=== PATIENT | female | born 1940 | race Caucasian/White ===

== ENCOUNTER 2022-02-10 10:57 | Emergency (ER) | payer OTHER ==
[~2022-02-10] VITALS: Ht 154.9 cm; Wt 76.2 kg
[2022-02-10] MEDS ORDERED: LASIX40 MG PO (11:56)
[2022-02-10] MEDS ORDERED: LIPITOR40 MG PO (11:56)
[2022-02-10] MEDS ORDERED: COZAAR50 M1 PO (11:57)
[2022-02-10] MEDS ORDERED: LEVOTHYROXINE50 MCG PO (11:57)
[2022-02-10] MEDS ORDERED: METOPROLOL25 MG PO (11:58)
[2022-02-10] MEDS ORDERED: POTASSIUM CHLO20 ME3 PO (11:59)
[2022-02-10 12:00] LABS: BASO % 0.3 % (0.0-1.0); EOS # 0.1 10*3/uL (0.0-0.4); EOS % 1.2 % (1.0-4.0); LYMPH # 1.4 10*3/uL (1.3-4.4); LYMPH % 23.5 % (27.0-41.0); MEAN CELL VOLUME 87.6 fl (81.0-99.0); MEAN CORPUSCULAR HGB 28.4 pg (27.0-31.0); MEAN CORPUSCULAR HGB CONC 32.4 g/dl (33.0-37.0); MEAN PLATELET VOLUME 11.6 fl (9.6-12.3); MONO # 0.5 10*3/uL (0.1-1.0); MONO % 7.8 % (3.0-9.0); NEUT # 4.1 10*3/uL (2.3-7.9); PLATELET COUNT AUTOMATED 147 10*3/uL (130-400); RED BLOOD COUNT 4.68 10*6/uL (4.10-5.10); RED CELL DISTRI WIDTH 13.7 % (0-14.5)
[2022-02-10] MEDS ORDERED: PRESERVISION A1 EAC3 PO (12:00)
[2022-02-10] MEDS ORDERED: STIOLTO RESPIMAT4 GM INH (12:01)
[2022-02-10 12:12] LABS: INTERNATIONAL NORM RATIO 1.1 (2.0-3.5)
[2022-02-10 12:19] LABS: ALKALINE PHOSPHATASE 93 U/L (45-117); BUN 23 mg/dl (7-24); CHLORIDE 108 mmol/L (98-107); CREATININE 0.87 mg/dL (0.55-1.02); SGPT/ALT 49 U/L (12-78); SODIUM 141 mmol/L (136-145)
[2022-02-10 13:10] LABS: ABG BASE EXCESS 1.1 mmol/L (-2.0-2.0); ARTERIAL BLOOD GAS PH 7.492 (7.35-7.45); ARTERIAL BLOOD GAS PO2 55.7 (80-90)
== END 2022-02-10 14:39 | disposition left against medical advice (07) ==
LOC: ED 10:57
PROVIDERS: Emergency Medicine
DX: R94.31 Abnormal electrocardiogram [ECG] [EKG] (principal); J44.9 Chronic obstructive pulmonary disease, unspecified; I50.9 Heart failure, unspecified; Z88.0 Allergy status to penicillin; Z88.2 Allergy status to sulfonamides; Z79.899 Other long term (current) drug therapy